=== PATIENT | male | born 1990 | race American Indian/Alaskan Native ===

== ENCOUNTER 2016-12-20 21:00 | Emergency (ER) | payer OTHER ==
[2016-12-20 21:07] VITALS: BP 129/60
--- NOTE | 2016-12-20 23:05 | Emergency Department Report ---
[facility] Chief Complaint: Eye Problems Stated Complaint: LEFT EYE PAIN,HEADACHE Time Seen by Provider: 12/20/16 23:00 Side: Left Severity: mild Symptoms: Yes Eye Itching, No Eye Redness, No Eye Pain (left eyelid pain 2ndf to stye ), No Mucous Drainage, No Purulent Drainage, No Blurred Vision, No Preceding URI, No H/O Allergic Rhinitis, No Contact Lens Use, No Trauma, No Fever, No Headache ED Review of Systems ROS: Stated complaint: LEFT EYE PAIN,HEADACHE Other details as noted in HPI Constitutional: denies: chills, fever Eyes: eye pain, other (stye left eye). denies: eye discharge, vision change ENT: denies: ear pain, throat pain Respiratory: denies: cough, shortness of breath, wheezing Cardiovascular: denies: chest pain, palpitations Endocrine: no symptoms reported Gastrointestinal: denies: abdominal pain, nausea, diarrhea Genitourinary: denies: urgency, dysuria Musculoskeletal: denies: back pain, joint swelling, arthralgia Skin: denies: rash, lesions Neurological: denies: headache, weakness, paresthesias Psychiatric: denies: anxiety, depression Hematological/Lymphatic: denies: easy bleeding, easy bruising ED Past Medical Hx - Past Medical History Previous Medical History?: No - Surgical History Past Surgical History?: No - Social History Smoking Status: Current Every Day Smoker Substance Use Type: Alcohol - Medications Home Medications: Home Medications Medication Instructions Recorded Confirmed Last Taken Type Cetirizine HCl [ZyrTEC] 10 mg PO DAILY #30 tab.rapdis 12/20/16 Unknown Rx Ibuprofen 800 mg PO TID PRN #30 tablet 12/20/16 Unknown Rx Polymyxin B Sulf/Trimethoprim 1 drop OP QID #1 bottle 12/20/16 Unknown Rx [Polytrim Eye Drops] [facility] Exam - Exam General: Vital signs noted. No distress. Alert and acting appropriately. Eye Exam: Both EOMI, Neither Injection, Neither Chemosis, Neither Abnormal Pupil , Neither Eye Foreign Body (eyelid inverted and swept irrigated no foreignbody ) , Neither Lid Foreign Body, Neither Mucous Discharge, Neither Purulent Discharge , Neither Corneal Edema, Neither Photophobia HEENT: No Nasal Congestion, No Pharyngeal Erythema Remainder of HEENT: Normal Lungs: Yes Clear Lung Sounds, Yes Good Air Exchange, No Wheezes, No Stridor, No Cough, No Nasal Flaring, No Retractions, No Use of Accessory Muscles ED Course Vital Signs 12/20/16 21:05 Temperature 98 F Pulse Rate 50 L Respiratory 20 Rate Blood Pressure 129/60 O2 Sat by Pulse 100 Oximetry ED Medical Decision Making - Medical Decision Making pt is a 26 y/o aam with hx stye to left eye 3 days ago who presents for same today noted stye to left upper eyelid no mild erythema no exudate no drainagen perrla eomi conjuctivae well perfused mild swelling, visual aquity 20/20 bilat, no corneal abrasion, IOP 14, plan: polytrim eye drops, zyrtec , ibuprofen follow up with ophthalmology upon appointment or return to emergency if symptoms worsen. pt verbalized agreement and understanding of discharge plan. Critical care attestation.: If time is entered above; I have spent that time in minutes in the direct care of this critically ill patient, excluding procedure time. ED Disposition Clinical Impression: Hordeolum externum left eye, unspecified eyelid Qualifiers: Eyelid: upper Qualified Code(s): H00.014 - Hordeolum externum left upper eyelid Disposition: Z-41 HOSPICE- MED FAC Is pt being admited?: No Does the pt Need Aspirin: No Condition: Good Instructions: Jakub (ED) Additional Instructions: follow up with Dr Ravi [phone] Prescriptions: Cetirizine HCl [ZyrTEC] 10 mg PO DAILY #30 tab.rapdis Ibuprofen 800 mg PO TID PRN #30 tablet PRN Reason: Pain Polymyxin B Sulf/Trimethoprim [Polytrim Eye Drops] 1 drop OP QID #1 bottle Referrals: PRIMARY CARE, [Primary Care Provider] - 3-5 Days Forms: Work/School Release Form(ED) Time of Disposition: 23:11
[2016-12-20] MEDS: MOTRIN PO ONE (23:35)
== END 2016-12-20 23:36 ==
LOC: ED 21:00
DX: H00.014 Hordeolum externum left upper eyelid (principal); F17.200 Nicotine dependence, unspecified, uncomplicated; Z88.0 Allergy status to penicillin; Z88.2 Allergy status to sulfonamides
CPT/HCPCS: 99282